=== PATIENT | female | born 1960 | race Caucasian/White ===

== ENCOUNTER 2024-04-12 20:08 | Emergency (ER) | payer SELFPAY ==
[~2024-04-12] VITALS: Ht 160 cm; Wt 60.0 kg
[2024-04-12 20:25] VITALS: O2SAT 97
[2024-04-12 23:26] LABS: HEMATOCRIT 40.3 % (36.0-48.0); HEMOGLOBIN 12.7 g/dL (12.0-16.0); MEAN CORPUSCULAR HEMOGLOBIN 22.2 pg (28.0-32.0); MEAN CORPUSCULAR HGB CONC 31.4 g/dL (31.0-37.0); MEAN CORPUSCULAR VOLUME 70.6 fL (81.0-99.0); PLATELET 169 x1000/uL (130-400); RED BLOOD CELL COUNT 5.71 mill/uL (4.2-5.4); RED CELL DISTRIBUTION WIDTH 15.3 % (11.6-14.6); WHITE BLOOD COUNT 6.7 x1000/uL (4.5-11.0)
[2024-04-12 23:32] LABS: POTASSIUM 4.9 mEq/L (3.5-5.1)
[2024-04-12 23:34] LABS: CALCIUM 10.2 mg/dL (8.7-10.4)
[2024-04-12 23:38] LABS: CREATININE 1.2 mg/dL (0.6-1.0)
[2024-04-12] MEDS ORDERED: LIDO700A15 TP (23:51)
[2024-04-12] MEDS ORDERED: NAPR-1176 MT (23:51)
[2024-04-13] MEDS: ACETAMINOPHEN 500MG TABLET PO ONE
[2024-04-13 00:27] VITALS: BP 135/66; PULSE 76; RESP 18; TEMP 36.39180; O2SAT 97
== END 2024-04-13 00:28 | disposition home or self-care (01) ==
LOC: ER 20:08
DX: R07.89 Other chest pain (principal); M54.50 Low back pain, unspecified; I10 Essential (primary) hypertension; Z79.1 Long term (current) use of non-steroidal anti-inflammatories (NSAID); V49.49XA Driver injured in collision with other motor vehicles in traffic accident, initial encounter; Y93.89 Activity, other specified; Y92.89 Other specified places as the place of occurrence of the external cause; Y99.8 Other external cause status
CPT/HCPCS: 36415; 71045; 80048; 85027; 99284